=== PATIENT | female | born 2000 | race Caucasian/White ===

== ENCOUNTER 2024-08-30 10:19 | Outpatient (REF) | payer MEDICAID, SELFPAY ==
--- OUTSIDE RECORDS SUMMARY | 2024-08-30 11:47 | XMS_ITS | Encounter Summary ---
Author Organization [facility] Address [address] [place] [address] Phone Care Team Providers Care Court Bailiff Or Sheriff Name Role Phone Unavailable Primary Care Provider Unavailabl e Reason for Visit * Reason Comments Med Refill Encounter Details Date Type Department Care Team ([facility] st Contact Info) Description 10/03/2017 Refill [facility] [address] [phone] Toya Lee MD [address] [id number] Allergic rhinitis, unspecified chronicity, unspecified seasonality, unspecified trigger Social History Tobacco Use Types Packs/Day Years Used Date Smoking Tobacco: Never Comments:Never Comments Unknown Sex and Gender Information Value Date Recorded Sex Assigned at Female 01/01/2021 10:23 PM EDT Legal Sex Female 12:17 PM EST Gender Identity Female 01/01/2021 10:23 PM EDT Sexual Orientation Bisexual 01/01/2021 2: 20 PM EDT documented as of this encounter Miscellaneous Notes * Telephone Encounter - Cyn Dupont LPN - 10/06/2017 8:11 AM EDT Pt. Has appt. Scheduled on 10/27/17. documented in this encounter Plan of Treatment Not on file documented as of this encounter Visit Diagnoses Diagnosis Allergic rhinitis, unspecified chronicity, unspecified seasonality, unspecified trigger documented in this encounter
[2024-08-30 13:41] LABS: ~Hepatitis B Surface Antibody NONREACTIVE (Nonreactive)
== END 2024-08-30 10:20 | disposition home or self-care (01) ==
LOC: HO.10HDL 10:19
PROVIDERS: Visit Provider Internal Medicine
DX: F32.5 Major depressive disorder, single episode, in full remission (principal); G43.909 Migraine, unspecified, not intractable, without status migrainosus; G47.00 Insomnia, unspecified; L43.8 Other lichen planus
CPT/HCPCS: 36415; 86706